=== PATIENT | female | born 1945 | race African-American/Black ===

== ENCOUNTER 2025-06-09 12:08 | Emergency (ER) | payer BC, MEDICARE, SELFPAY ==
[~2025-06-09 12:08] MED LIST: Iopamidol 370 76% 100 ML VIAL ONE
[2025-06-09 12:38] LABS: #Basophils 0.1 thou/uL (0.0-0.2); #Eosinophils 0.1 thou/uL (0.0-0.7); #Lymphocytes 5.2 thou/uL (1.20-3.40); #Monocytes 0.6 thou/uL (0.11-0.59); #Neutrophils 3.3 thou/uL (1.40-6.50); %Basophils 0.7 % (0.0-1.0); %Eosinophils 1.1 % (0.0-10.0); %Lymphocytes 56.1 % (21.0-51.0); %Monocytes 6.5 % (0.0-10.0); %Neutrophils 35.5 % (42.0-75.0); Hematocrit 45.6 % (36.0-47.0); Hemoglobin 15.1 g/dL (12.0-16.0); Mean Corpuscular Hemoglobin 28.9 pg (27.0-31.0); Mean Corpuscular Volume 86.9 fl (78.0-98.0); Platelet Count 240 10x3/uL (130-400); Red Blood Cell (RBC) Count 5.25 mill/uL (4.20-5.40); White Blood Cell (WBC) Count 9.2 10x3/uL (4.8-10.8)
[2025-06-09 12:47] LABS: INR-International Normal Ratio 1.1; PTT 27.4 sec (22.9-36.1); Prothrombin Time 14.5 sec (12.0-14.7)
[2025-06-09 12:55] LABS: ALT (SGPT) 12 U/L (Less than 34); AST (SGOT) 24 U/L (11-34); Albumin 3.9 g/dL (3.1-4.5); Alkaline Phosphatase 104 U/L (40-110); Anion Gap 17 mmol/L (10-20); BUN (Urea Nitrogen) 11 mg/dL (9.8-20.1); Bilirubin, Total 0.6 mg/dL (0.3-1.2); Calc. Creatinine Clearance 0 mL/min (70-130); Calcium 9.5 mg/dL (7.8-10.44); Carbon Dioxide 22 mmol/L (23-31); Chloride 106 mmol/L (98-107); Globulin 4.6 g/dL (2.4-3.5); Glucose 98 mg/dL (83-110); Potassium 3.4 mmol/L (3.5-5.1); Sodium 142 mmol/L (136-145)
[2025-06-09 12:57] LABS: Troponin I Less than 0.010 ng/mL (< 0.028)
[2025-06-09] MEDS ORDERED: Aspirin 325 MG TAB ONE (13:17)
== END 2025-06-09 16:51 | disposition short-term general hospital (02) ==
LOC: NAV ERS 12:08
DX: I63.512 Cerebral infarction due to unspecified occlusion or stenosis of left middle cerebral artery (principal); D18.02 Hemangioma of intracranial structures; I10 Essential (primary) hypertension; R29.701 NIHSS score 1
CPT/HCPCS: 36416; 70450; 70496; 70498; 80053; 84484; 85025; 85610; 85730; 96374; 96376; Q9967